=== PATIENT | female | born 1995 | race Caucasian/White ===

== ENCOUNTER → 2016-11-17 | Outpatient (CLI) | payer BC | LOC: LAB 07:59 | PROVIDERS: ATTEND Obstetrics & Gynecology Reproductive Endocrinology | DX: Z32.01 Encounter for pregnancy test, result positive (principal); N97.9 Female infertility, unspecified | CPT/HCPCS: 36415; 84144; 84702 ==

== ENCOUNTER → 2016-11-19 | Outpatient (CLI) | payer BC | LOC: LAB 07:13 | PROVIDERS: ATTEND Obstetrics & Gynecology Reproductive Endocrinology | DX: Z32.01 Encounter for pregnancy test, result positive (principal) | CPT/HCPCS: 36415; 84702 ==

== ENCOUNTER → 2016-12-30 | Outpatient (CLI) | payer BC ==
[2017-01-04 02:36] LABS: CHLAMYDIA PREQUOT NAA Negative (Negative)
[2017-01-04 07:42] LABS: GONOCOCCUS PREQUOT (CYTO) NAA Negative (Negative)
== END ==
LOC: OD 09:35
PROVIDERS: ATTEND Midwife
DX: Z13.29 Encounter for screening for other suspected endocrine disorder (principal); O23.40 Unspecified infection of urinary tract in pregnancy, unspecified trimester
CPT/HCPCS: 36415; 84443; 87086; 87491; 87591; 88142

== ENCOUNTER 2017-03-01 20:33 | Emergency (ER) | payer BC, MEDICAID ==
--- NOTE | 2017-03-01 22:45 | RADIOLOGY REPORT (SQ) ---
CORRECTED REPORT EXAM DESCRIPTION: U/S OB 14+ TRNABD 1GES W/O DOP; U/S 84294 + EACH ADDIT GEST COMPLETED DATE/TIME: 03/01/2017 10:34 pm REASON FOR STUDY: 19wks preg abd pain with twin COMPARISON: None. TECHNIQUE: Static and Dynamic grayscale imaging performed of gravid uterus using transabdominal approach. Additional selected color Doppler and spectral images recorded. All stored on PACS. LIMITATIONS: None. FINDINGS: The study demonstrates a twin intrauterine gestation. Estimated gestational age is 19 weeks 1 day for twin a and twin B. Estimated due date is 07/25/2017. Estimated weight for twin a is 283 g. L WELDER GAS is 3.7. The placenta is posterior in location. presentation is variable. heart rate is 152 beats per minute. Three-vessel cord and cord insertion are noted. bladder is present. The remainder of the anatomy is poorly demonstrated secondary to the patient's clinical condition. Estimated weight for twin B is 271 g. L WELDER GAS is 3.8 cm. presentation is vertex. The placenta is anterior location. Twin B heart rate is 145 beats per minute. Three-vessel cord is noted. Cord insertion is unremarkable. Bladder and stomach are noted. IMPRESSION: Living 19 week 1 day intrauterine twin gestation. Limited evaluation of anatomy secondary to the patient's clinical condition. No acute findings. Trimester of : Second trimester - 13 weeks 1 day to 27 weeks 6 days. TECHNICAL DOCUMENTATION: JOB ID: [id number] Note- All Rights Reserved <Electronically signed by TATI RAE MD in OV> 03/01/17 2931 MTDD
--- NOTE | 2017-03-01 22:45 | RADIOLOGY REPORT (SQ) ---
CORRECTED REPORT EXAM DESCRIPTION: U/S 07856 + EACH ADDIT GEST COMPLETE DATE/TIME: 03/01/2017 10:34 pm REASON FOR STUDY: 19wks preg abd pain with twin FINDINGS: Please see combined report for performance of procedure and radiologic supervision and interpretation. IMPRESSION: Please see combined report for performance of procedure and radiologic supervision and interpretation. <Electronically signed by TATI RAE MD in OV> 03/01/17 [id number] [facility]
[2017-03-01 23:16] LABS: APPEARANCE,URINE SLIGHTLY-CLOUDY; BILIRUBIN,URINE NEGATIVE (NEGATIVE); GLUCOSE, URINE NEGATIVE (NEGATIVE); KETONES,URINE NEGATIVE (NEGATIVE); LEUKOCYTE ESTERASE,URINE NEGATIVE (NEGATIVE); NITRITE,URINE NEGATIVE (NEGATIVE); PROTEIN,URINE 30 mg/dL (NEGATIVE); URINE SPECIFIC GRAVITY 1.016; UROBILINOGEN,URINE NEGATIVE mg/dL (<2.0)
[2017-03-01] MEDS: MORPHINE SULFATE 10 MG/ML INJ IV PRN ×2 (23:40→23:41)
[2017-03-01] MEDS ORDERED: MORPHINE SULFATE 10 MG/ML INJ IV PRN (23:42)
[2017-03-01] MEDS ORDERED: ACETAMINOPHEN 325 MG TABLET PO ONE (23:43)
[2017-03-01] MEDS ORDERED: NORMAL SALINE 1000 ML 1,000 ML IV ONE (23:43)
[2017-03-01] MEDS ORDERED: ONDANSETRON HCL INJ/PF 4 MG/2 ML SDV IV ONE (23:43)
--- NOTE | 2017-03-01 23:43 | ER Document Report ---
ED General - General Chief Complaint: Abdominal Pain Stated Complaint: ABDOMINAL PAIN/19 WEEKS Time Seen by Provider: 03/01/17 22:48 Notes: Patient is a 21-year-old female who is currently 19 weeks with twins who presents with acute onset of severe left flank pain radiating into her left lower abdomen. Does describe as a severe, constant, stabbing pain to the affected areas. Nothing improves or worsens the pain. States it feels somewhat similar to when she had kidney stones in the past. No history of complicated kidney stone. She denies any dysuria, vaginal bleeding or vaginal discharge. Notes that she has been nauseated without vomiting. She has not seen her primary care doctor regarding today's concerns. TRAVEL OUTSIDE OF THE [place] IN LAST 30 DAYS: No - Related Data Allergies/Adverse Reactions: latex [Latex] Allergy (Verified 04/21/15 14:25) Past Medical History - General Information source: Patient - Social History Smoking Status: Never Smoker Frequency of alcohol use: None Drug Abuse: None Lives with: Spouse/Significant other Family History: Reviewed & Not Pertinent Renal/ Medical History: Reports: Hx Kidney Stones. Denies: Hx Peritoneal Dialysis - Immunizations Hx Diphtheria, Pertussis, Tetanus Vaccination: Yes Review of Systems - Review of Systems Notes: Constitutional: Negative for fever. HENT: Negative for sore throat. Eyes: Negative for visual changes. Cardiovascular: Negative for chest pain. Respiratory: Negative for shortness of breath. Gastrointestinal: Positive for left flank pain and nausea Genitourinary: Negative for dysuria. Musculoskeletal: Negative for back pain. Skin: Negative for rash. Neurological: Negative for headaches, weakness or numbness. 10 point ROS negative except as marked above and in HPI. Physical Exam - Vital signs Vitals: Temp Pulse Resp BP Pulse Ox 97.8 F 92 18 145/86 H 100 03/01/17 20:39 03/01/17 20:39 03/01/17 20:39 03/01/17 20:39 03/01/17 20:39 Interpretation: Normal Notes: PHYSICAL EXAMINATION: GENERAL: Appears uncomfortable, in pain HEAD: Atraumatic, normocephalic. EYES: Pupils equal round and reactive to light, extraocular movements intact, sclera anicteric, conjunctiva are normal. ENT: nares patent, oropharynx clear without exudates. Moist mucous membranes. NECK: Normal range of motion, supple without lymphadenopathy LUNGS: Breath sounds clear to auscultation bilaterally and equal. No wheezes rales or rhonchi. HEART: Regular rate and rhythm without murmurs ABDOMEN: Gravid uterus. No focal abdominal pain. Exquisite left CVA tenderness to palpation EXTREMITIES: Normal range of motion, no pitting or edema. No cyanosis. NEUROLOGICAL: No focal neurological deficits. Moves all extremities spontaneously and on command. PSYCH: Normal mood, normal affect. SKIN: Warm, Dry, normal turgor, no rashes or lesions noted. Course - Re-evaluation Re-evalutation: 03/01/17 23:42 Presents with findings consistent with acute nephrolithiasis. Urinalysis does show hematuria. Bedside ultrasound does demonstrate a dilated left kidney with moderate hydronephrosis and a normal right-sided kidney. Patient with twins and an ultrasound of the uterus demonstrates normal gestation without evidence of acute pathology related to her . Laboratory otherwise unremarkable. Pain was able to be controlled here in the emergency department. Patient is tolerating oral intake. Clinical history is not consistent with an acute abdominal aneurysm or dissection, MA, or pulmonary embolus. Urinalysis does not show findings consistent with an infected stone. Vitals have remained within normal limits. Patient will be discharged with recommendations to follow-up with urology, pain medications, and return precautions. They are in agreement with this plan and verbalized indications return to emergency department. - Vital Signs Vital signs: Temp Pulse Resp BP Pulse Ox 97.8 F 97 20 114/65 92 03/01/17 20:39 03/02/17 00:44 03/02/17 00:44 03/02/17 00:44 03/02/17 00:44 - Laboratory Result Diagrams: 03/01/17 23:30 03/01/17 23:30 Laboratory results interpreted by me: 03/01/17 03/01/17 03/01/17 20:25 23:30 23:30 WBC 11.9 H RBC 3.47 L Hgb 10.1 L Hct 30.8 L Seg Neutrophils % 86.3 H Lymphocytes % 9.1 L Absolute Neutrophils 10.2 H Sodium 136.6 L Urine Protein 30 H Urine Blood LARGE H Discharge - Discharge Clinical Impression: Kidney stone on left side Condition: Good Disposition: HOME, SELF-CARE Additional Instructions: Your symptoms should improve over the course of the next one week. If you continue to have pain for greater than one week or your pain is not controlled with the pain medications that you have been sent home with you need to return to the emergency department. Please also return if you develop fever, persistent vomiting, or any other symptoms that are concerning to you. For your pain: Take acetaminophen 1000 mg every 6 hours as needed for pain. If this does not control your pain you may take 15-30 mg of oral morphine every 4 hours as needed. Please be very careful about using the oral morphine and only use this for severe pain. Take Zofran as needed for nausea. Take the tamsulosin to help to pass the stone. Prescriptions: Morphine Sulfate [Morphine Ir 15 mg Tablet] 15 - 30 mg PO Q4HP PRN #20 tablet PRN Reason: Ondansetron [Zofran Odt 4 mg Tablet] 1 - 2 tab PO Q4H PRN #15 tab.rapdis PRN Reason: For Nausea/Vomiting Tamsulosin HCl [Flomax 0.4 mg Cap.sr] 0.4 mg PO DAILY #7 cap.sr.24h Referrals: LEWIS CRUZ MD [Primary Care Provider] - Follow up as needed
[2017-03-01] MEDS ORDERED: TAMSULOSIN HCL 0.4 MG CAP.SR.24H PO ONE (23:44)
[2017-03-01 23:53] LABS: ANION GAP 12 (5-19); BLOOD UREA NITROGEN 9 mg/dL (7-20); CALCIUM 9.1 mg/dL (8.4-10.2); CARBON DIOXIDE 22 mmol/L (22-30); CHLORIDE 103 mmol/L (98-107); CREATININE RESULT 0.53 mg/dL (0.52-1.25); GLUCOSE 96 mg/dL (75-110); POTASSIUM 3.8 mmol/L (3.6-5.0); SODIUM 136.6 mmol/L (137-145)
[2017-03-01 23:55] LABS: ABSOLUTE LYMPHOCYTES (AUTO) 1.1 10^3/uL (0.5-4.7); ABSOLUTE MONOCYTES (AUTO) 0.5 10^3/uL (0.1-1.4); ABSOLUTE NEUT (AUTO) 10.2 10^3/uL (1.7-8.2); BASOPHILS % (AUTO) 0.1 % (0-2); EOSINOPHILS % (AUTO) 0.3 % (0-6); HEMATOCRIT 30.8 % (36.0-47.0); HEMOGLOBIN 10.1 g/dL (12.0-15.5); HGB HCT DIFFERENCE -0.5; LYMPHOCYTES % (AUTO) 9.1 % (13-45); MEAN CORPUSCULAR HEMOGLOBIN 29.2 pg (27.0-33.4); MEAN CORPUSCULAR HGB CONC 32.9 g/dL (32.0-36.0); MEAN CORPUSCULAR VOLUME 89 fl (80-97); MONOCYTES % (AUTO) 4.2 % (3-13); RED BLOOD COUNT 3.47 10^6/uL (3.72-5.28); RED CELL DISTRIBUTION WIDTH 13.3 % (11.5-14.0); SEGMENTED NEUTROPHILS % (AUTO) 86.3 % (42-78); WHITE BLOOD COUNT 11.9 10^3/uL (4.0-10.5)
[2017-03-02] MEDS ORDERED: ONDANSETRON ODT 4 MG TAB (6 TAB/DSPK) PO PRN (00:27)
[2017-03-02] MEDS ORDERED: HYDROCODONE/ACETAMINOPHEN 5-325 MG 6 TAB/DSPK PO PRN (00:27)
[2017-03-02 00:48] VITALS: BP 114/65
== END 2017-03-02 00:47 | disposition home or self-care (01) ==
LOC: ER 20:33
DX: O26.832 Pregnancy related renal disease, second trimester (principal); N20.0 Calculus of kidney; N13.30 Unspecified hydronephrosis; O26.892 Other specified pregnancy related conditions, second trimester; R11.0 Nausea; R10.9 Unspecified abdominal pain; R31.9 Hematuria, unspecified; O30.002 Twin pregnancy, unspecified number of placenta and unspecified number of amniotic sacs, second trimester; Z3A.19 19 weeks gestation of pregnancy; Z91.040 Latex allergy status
CPT/HCPCS: 99284; 96361; 96374; 96375; 36415; 85025; 80048; 81001; 76802; 76805; J2270; J2405; J7030; 76810

== ENCOUNTER 2017-03-02 02:40 | Emergency (ER) | payer BC, MEDICAID ==
[2017-03-02] MEDS ORDERED: NORMAL SALINE 1000 ML 1,000 ML IV ONE (03:38)
[2017-03-02] MEDS ORDERED: ONDANSETRON HCL INJ/PF 4 MG/2 ML SDV IV ONE (03:39)
[2017-03-02] MEDS ORDERED: PROMETHAZINE HCL INJ 50 MG/1 ML VIAL IM ONE (03:39)
[2017-03-02] MEDS ORDERED: MORPHINE SULFATE 10 MG/ML INJ IV ONE (03:39)
--- NOTE | 2017-03-02 03:42 | ER Document Report ---
ED General - General Chief Complaint: Possible Kidney Stone Stated Complaint: ABDOMINAL PAIN Time Seen by Provider: 03/02/17 03:31 Notes: Patient is a 21-year-old female presents with complaint of severe left flank pain. She currently 19 weeks with twins. She has had no vaginal bleeding or complications with the . She was seen earlier by Dr. Oscar. At that time she had a bedside ultrasound performed which showed hydronephrosis in the left consistent with kidney stone. She was discharged home with morphine. Since then she has been vomiting and unable to hold on medications. She has had severe pain. Pain has been intractable and therefore she is brought back to the ER. She does have previous history of kidney stones. She never required stenting. She has passed previous stones on her own. TRAVEL OUTSIDE OF THE [place] IN LAST 30 DAYS: No - Related Data Allergies/Adverse Reactions: latex [Latex] Allergy (Verified 04/21/15 14:25) Past Medical History - Social History Smoking Status: Never Smoker Chew tobacco use (# tins/day): No Frequency of alcohol use: None Drug Abuse: None Family History: Reviewed & Not Pertinent Renal/ Medical History: Reports: Hx Kidney Stones. Denies: Hx Peritoneal Dialysis - Immunizations Hx Diphtheria, Pertussis, Tetanus Vaccination: Yes Review of Systems - Review of Systems Notes: My Normal Review Basic REVIEW OF SYSTEMS: CONSTITUTIONAL : Denies fever, chills, or sweats. Denies recent illness. EENT: Denies eye, ear, throat, or mouth pain or symptoms. Denies nasal or sinus congestion. RESPIRATORY: Denies cough, cold, or chest congestion. Denies shortness of breath, difficulty breathing, or wheezing. GASTROINTESTINAL: Left Flank pain GENITOURINARY: Denies difficulty urinating, painful urination, burning, frequency, or blood in urine. FEMALE GENITOURINARY: Denies vaginal bleeding, abnormal or irregular periods. LMP:currently MUSCULOSKELETAL: Denies neck or back pain or joint pain or swelling. SKIN: Denies rash or skin lesions. NEUROLOGICAL: Denies altered mental status or loss of consciousness. Denies headache. Denies weakness or paralysis or loss of use of either side. Denies problems with gait or speech. Denies sensory or motor loss. ALL OTHER SYSTEMS REVIEWED AND NEGATIVE. Physical Exam - Vital signs Vitals: Temp Pulse Resp BP Pulse Ox 97.8 F 90 16 114/62 100 06/21/17 02:49 03/02/17 02:49 03/02/17 02:49 03/02/17 02:49 03/02/17 02:49 - Notes Notes: General Appearance: Well nourished, alert, cooperative, no acute distress, severe obvious discomfort. Vitals: reviewed, See vital signs table. Head: no swelling or tenderness to the head Eyes: PERRL, EOMI, Conjuctiva clear Mouth: No decreasd moisture Neck: Supple, no neck tenderness Lungs: No wheezing, No rales, No rhonci, No accessory muscle use, good air exchange bilaterally. Heart: Normal rate, Regular rythm, No murmur, no rub Abdomen: Normal BS, soft, No rigidity, some left flank pain to palpation. Remainder of abdomen is nontender, No guarding, no rebound, no abdominal masses , no organomegaly Pelvic: No blood in vaginal vault Extremities: strength 5/5 in all extremities, good pulses in all extremities, no swelling or tenderness in the extremities, no edema. Skin: warm, dry, appropriate color, no rash Neuro: speech clear, oriented x 3, normal affect, responds appropriately to questions. Course - Re-evaluation Re-evalutation: 03/02/17 03:59 Patient is still having severe pain after the morphine. I will give her a dose of Dilaudid before she goes over to ultrasound. - Vital Signs Vital signs: Temp Pulse Resp BP Pulse Ox 97.8 F 90 16 114/62 100 03/02/17 02:49 03/02/17 02:49 03/02/17 02:49 03/02/17 02:49 03/02/17 02:49 - Laboratory Result Diagrams: 03/02/17 03:46 03/02/17 03:46 Laboratory results interpreted by me: 03/02/17 03/02/17 03/02/17 03:46 03:46 04:29 WBC 15.4 H RBC 3.35 L Hgb 9.7 L Hct 30.1 L Seg Neutrophils % 91.3 H Lymphocytes % 5.6 L Monocytes % 2.9 L Absolute Neutrophils 14.0 H Sodium 136.6 L Carbon Dioxide 21 L Glucose 121 H Urine Ketones 20 H Urine Blood MODERATE H Urine Ascorbic Acid 40 H - Transfer of Care Notes: 03/02/17 06:20 We do not have urology here. Patient does get pain relief from from the pain medicine. After approximately an hour the pain medicine wears off and she is back to having severe pain. Phenergan has helped her nausea significantly. Due to the patient's intractable pain and vomiting sweats probably to transfer to a place to his urology. She gets her OB care at [facility] because she is high risk due to having twin gestations. I did call and speak with Dr. Fischer to accept the patient. Patient will be closely monitored until transferred. Dictation of this chart was performed using voice recognition software; therefore, there may be some unintended grammatical errors. Discharge - Discharge Clinical Impression: Kidney stone on left side Qualifiers: Weeks of gestation: 19 weeks Qualified Code(s): Z3A.19 - 19 weeks gestation of Condition: Stable Disposition: [facility]
[2017-03-02] MEDS ORDERED: HYDROMORPHONE HCL INJ/PF 2 MG/ML AMPULE IV ONE ×4 (03:58→08:20)
[2017-03-02 04:01] LABS: ABSOLUTE LYMPHOCYTES (AUTO) 0.9 10^3/uL (0.5-4.7); ABSOLUTE MONOCYTES (AUTO) 0.4 10^3/uL (0.1-1.4); BASOPHILS % (AUTO) 0.1 % (0-2); EOSINOPHILS % (AUTO) 0.1 % (0-6); HEMATOCRIT 30.1 % (36.0-47.0); HEMOGLOBIN 9.7 g/dL (12.0-15.5); LYMPHOCYTES % (AUTO) 5.6 % (13-45); MEAN CORPUSCULAR HGB CONC 32.2 g/dL (32.0-36.0); MEAN CORPUSCULAR VOLUME 90 fl (80-97); MONOCYTES % (AUTO) 2.9 % (3-13); RED BLOOD COUNT 3.35 10^6/uL (3.72-5.28); SEGMENTED NEUTROPHILS % (AUTO) 91.3 % (42-78); WHITE BLOOD COUNT 15.4 10^3/uL (4.0-10.5)
[2017-03-02] MEDS ORDERED: HYDROMORPHONE HCL INJ/PF 2 MG/ML AMPULE ONE (04:01)
[2017-03-02 04:06] LABS: ANION GAP 9 (5-19); BLOOD UREA NITROGEN 8 mg/dL (7-20); CALCIUM 8.7 mg/dL (8.4-10.2); CARBON DIOXIDE 21 mmol/L (22-30); CHLORIDE 107 mmol/L (98-107); CREATININE RESULT 0.56 mg/dL (0.52-1.25); GLUCOSE 121 mg/dL (75-110); POTASSIUM 4.1 mmol/L (3.6-5.0); SODIUM 136.6 mmol/L (137-145)
[2017-03-02] MEDS ORDERED: PROMETHAZINE HCL INJ 25 MG/1 ML VIAL ONE (04:06)
--- NOTE | 2017-03-02 04:47 | RADIOLOGY REPORT (SQ) ---
EXAM DESCRIPTION: U/S RETROPERITON (RENAL/AORTA) COMPLETED DATE/TIME: 03/02/2017 4:33 am REASON FOR STUDY: flank pain COMPARISON: None. TECHNIQUE: Dynamic and static grayscale images acquired of the kidneys and bladder and recorded on P ACS. Additional selected color Doppler and spectral images recorded. LIMITATIONS: None. FINDINGS: RIGHT KIDNEY: Normal size. Normal echogenicity. No solid or suspicious masses. Mild hydro nephrosis with renal pelvis measuring 1.5 cm in diameter. No calcifications. LEFT KIDNEY: Normal size. Normal echogenicity. No solid or suspicious masses. Mild hydronephrosis w ith renal pelvis measuring 1.5 cm in diameter. No calcifications. BLADDER: No masses. Bilateral jet flow not demonstrated. OTHER FINDINGS: Patient has a known gravid twin gestation not confirmed. IMPRESSION: No acute findings. Mild bilateral physiologic hydronephrosis of . TECHNICAL DOCUMENTATION: JOB ID: [id number] [employer]- All Rights Reserved
[2017-03-02 04:53] LABS: APPEARANCE,URINE SLIGHTLY-CLOUDY; BILIRUBIN,URINE NEGATIVE (NEGATIVE); GLUCOSE, URINE NEGATIVE (NEGATIVE); KETONES,URINE 20 mg/dL (NEGATIVE); LEUKOCYTE ESTERASE,URINE NEGATIVE (NEGATIVE); NITRITE,URINE NEGATIVE (NEGATIVE); PROTEIN,URINE NEGATIVE (NEGATIVE); URINE SPECIFIC GRAVITY 1.017; UROBILINOGEN,URINE NEGATIVE mg/dL (<2.0)
[2017-03-02 08:41] VITALS: BP 117/60
== END 2017-03-02 08:20 | disposition short-term general hospital (02) ==
LOC: ER 02:40
DX: O26.92 Pregnancy related conditions, unspecified, second trimester (principal); N20.0 Calculus of kidney; R10.9 Unspecified abdominal pain; Z3A.19 19 weeks gestation of pregnancy; Z91.040 Latex allergy status; Z87.442 Personal history of urinary calculi
CPT/HCPCS: 96376; 99285; 96372; 96361; 96374; 96375; 36415; 87086; 85025; 80048; 81001; 76770; J2270; J1170; J2550; J2405; J7030

== ENCOUNTER → 2017-05-04 | Outpatient (CLI) | payer BC, MEDICAID ==
[2017-05-04 12:04] LABS: ADD HIVPANEL? NO; HIV (1 AND 2) ANTIBODY NEGATIVE (NEGATIVE)
== END ==
LOC: OD 10:03
PROVIDERS: ATTEND Student in an Organized Health Care Education/Training Program
DX: O30.003 Twin pregnancy, unspecified number of placenta and unspecified number of amniotic sacs, third trimester (principal); Z11.59 Encounter for screening for other viral diseases; Z11.3 Encounter for screening for infections with a predominantly sexual mode of transmission; Z11.4 Encounter for screening for human immunodeficiency virus [HIV]
CPT/HCPCS: 36415; 86592; 86701

== ENCOUNTER 2017-05-25 10:34 | Outpatient (CLI) | payer BC, MEDICAID ==
[2017-05-25 11:36] LABS: APPEARANCE,URINE CLOUDY; BILIRUBIN,URINE NEGATIVE (NEGATIVE); CALCIUM OXALATE CRYSTALS,URINE MODERATE /HPF; GLUCOSE, URINE NEGATIVE (NEGATIVE); KETONES,URINE 20 mg/dL (NEGATIVE); LEUKOCYTE ESTERASE,URINE SMALL (NEGATIVE); NITRITE,URINE NEGATIVE (NEGATIVE); PROTEIN,URINE 30 mg/dL (NEGATIVE); URINE SPECIFIC GRAVITY 1.017; UROBILINOGEN,URINE NEGATIVE mg/dL (<2.0)
[2017-05-25 11:48] LABS: URINE BARBITURATES SCREEN NEGATIVE; URINE METHADONE SCREEN NEGATIVE; URINE OPIATES LOW NEGATIVE; URINE PHENCYCLIDINE SCREEN NEGATIVE
[2017-05-25 12:10] LABS: AMNISURE (ROM) NEGATIVE (NEGATIVE)
--- NOTE | 2017-05-25 12:38 | RADIOLOGY REPORT (SQ) ---
EXAM DESCRIPTION: U/S OB LIMITED COMPLETED DATE/TIME: 05/25/2017 12:20 pm REASON FOR STUDY: Cervical length to R/O labor COMPARISON: 03/01/2017 OB ultrasound TECHNIQUE: Limited transabdominal and endovaginal grayscale ultrasound for evaluation of specific re quested obstetrical parameters. LIMITATIONS: None. FINDINGS: CERVICAL LENGTH: 1.7 cm. There is cervical funneling. JESUS: Twin a 4.1 cm largest pocket. Twin B 5.4 cm largest pocket FHR: Twin a 137 beats per minute. Twin B 152 beats per minute beats per minute. PRESENTATION: Twin a breech, twin B transverse OTHER: No other significant findings. IMPRESSION: LIMITED OBSTETRICAL ULTRASOUND WITH MEASURED PARAMETERS DELINEATED ABOVE. Trimester of : Third trimester - 28 weeks to delivery. TECHNICAL DOCUMENTATION: JOB ID: [id number] [employer]- All Rights Reserved
--- NOTE | 2017-05-25 13:50 | RADIOLOGY REPORT (SQ) ---
EXAM DESCRIPTION: U/S [id number] + EACH ADDIT GEST COMPLETE DATE/TIME: 05/25/2017 12:20 pm REASON FOR STUDY: PTL FINDINGS: Please see combined report for performance of procedure and radiologic supervision and int erpretation. IMPRESSION: Please see combined report for performance of procedure and radiologic supervision and i nterpretation.
[2017-05-25] MEDS ORDERED: BETAMET ACET/BETAMET NA INJ 6 MG/1 ML ONE (14:26)
[2017-05-25] MEDS ORDERED: MAGNESIUM SULFATE 4 GM/100 ML RTUPB IV ONE (14:26)
[2017-05-25] MEDS ORDERED: BETAMET ACET/BETAMET NA INJ 6 MG/1 ML IM PRN (14:26)
[2017-05-25] MEDS ORDERED: PENICILLIN G-K 5 MILLION UNIT VIAL IV ONE (15:29)
[2017-05-25] MEDS ORDERED: PENICILLIN G-K 5 MILLION UNIT VIAL ONE (15:30)
--- NOTE | 2017-05-25 16:20 | PDOC TRANSFER SUMMARY ---
General Admission Date/PCP: RONALD HOBBS MD Admission Date: 05/25/17 Transfer Date: 05/25/17 Accepting Facility: [facility] Accepting Physician: Dr. Aparicio Resuscitation Status: Full Code - Transfer Diagnosis (1) Twin Is this a current diagnosis for this admission?: Yes Diagnosis Summary: IVF with TIUP DC/DA. Twin A with enlarged right heart and tricuspid regurg. Pt followed by MFM. Recently Dx with GDM. Possible posterior palcenta previa which is not mentioned on last US. Placentas reported as posterior and Anterior. NO e/o previa on US at [facility] then gentle cervix exam done cvx /high/anterior/medium. Breech/transverse presentation. (2) labor Diagnosis Summary: Pt came in with contractions and cramping. Cervical length was 3.8cm with funneling and residual functional cervix is 1.7cm. Reviewed with NICU that needed to monitor for concerns of PTL. NICU requests transfer due to capacity and ega with TIUP and Twin A with cardiac concerns. GBS swab done, PCN for prophy, Mag Sulfate for neuroprotection, BMZ given. Dr. Aparicio at [facility] accepted transfer. (3) Gestational diabetes mellitus Is this a current diagnosis for this admission?: Yes Diagnosis Summary: Currently performing accuchecks and diet controlled. - Transfer Medications Home Medications: Folic Acid 1 mg PO DAILY 05/25/17 Pnv #116/Iron Fumarate/FA/Dha [Expecta Combo Pack] 1 tab PO DAILY 05/25 Transfer Medications: Current Medications Betamethasone Acet/Betameth SodPhos (Celestone Inj 6 Mg/1 Ml) 12 mg IM X2DS PRN Stop: 06/24/17 14:25 Penicillin G Potassium (Pfizerpen Inj 5 Million Unit Vial) 5,000,000 unit IV IVBAG (ED) ONE Stop: 05/25/17 15:30 - Allergies Allergies/Adverse Reactions: latex [Latex] Allergy (Verified 05/25/17 10:44) - Diet/Activity Discharge Diet: Other (Comments) - NPO for now Discharge Activity: Bedrest Hospital Course Hospital Course: Pt seen on L&D and assessed and determined to be in possible labor. NICU notified. NICU requested due to ega and TIUP with concerns for cardiac anatomy on Twin A. Dr. Aparicio Accepeted transfer. Physical Exam Vital Signs: Intake & Output 05/24/17 05/25/17 05/26/17 06:59 06:59 06:59 Weight 97.95 kg General appearance: PRESENT: no acute distress, well-developed, well-nourished Head exam: PRESENT: atraumatic, normocephalic Cardiovascular exam: PRESENT: RRR. ABSENT: diastolic murmur, rubs, systolic murmur GI/Abdominal exam: PRESENT: normal bowel sounds, soft. ABSENT: distended, guarding, mass, organolmegaly, rebound, tenderness Rectal exam: PRESENT: deferred Extremities exam: PRESENT: full ROM. ABSENT: calf tenderness, clubbing, pedal edema Musculoskeletal exam: PRESENT: ambulatory Neurological exam: PRESENT: alert, awake, oriented to person, oriented to place , oriented to time, oriented to situation, CN II-XII grossly intact. ABSENT: motor sensory deficit Psychiatric exam: PRESENT: appropriate affect, normal mood. ABSENT: homicidal ideation, suicidal ideation Skin exam: PRESENT: dry, intact, warm. ABSENT: cyanosis, rash Results Laboratory Results: 05/25/17 10:45 Urine Color YELLOW Urine Appearance CLOUDY Urine pH 5.0 Ur Specific [place]ell 1.017 Urine Protein 30 H Urine Glucose (UA) NEGATIVE Urine Ketones 20 H Urine Blood LARGE H Urine Nitrite NEGATIVE Ur Leukocyte Esterase SMALL H Urine WBC (Auto) 33 Urine RBC (Auto) >182 Impressions: Obstetrics Ultrasound 05/25/17 00:00 IMPRESSION: Please see combined report for performance of procedure and radiologic supervision and interpretation. Status: Imported from PACS Plan Discharge Plan: Transfer to [facility] due to ega 31wks, TIUP, Twin A with cardiac concerns
== END 2017-05-25 17:00 | disposition home or self-care (01) ==
LOC: LC 10:34
PROVIDERS: ATTEND Student in an Organized Health Care Education/Training Program
PROC: 4A1HXCZ Monitoring of Products of Conception, Cardiac Rate, External Approach (ICD-10-PCS; principal; 2017-05-25)
DX: O60.03 Preterm labor without delivery, third trimester (principal); O24.410 Gestational diabetes mellitus in pregnancy, diet controlled; O30.043 Twin pregnancy, dichorionic/diamniotic, third trimester; Z3A.34 34 weeks gestation of pregnancy
CPT/HCPCS: 59025; 96372; 84112; 82962; 81001; 80307; 76815; 76810; J3475; J2540; J0702